=== PATIENT | male | born 1970 | race Caucasian/White ===

== ENCOUNTER 2016-04-30 12:05 | Outpatient (CLI) ==
[2014-03-27 10:23] VITALS: BMI 24.9
--- NOTE | 2016-04-30 12:46 | DI ---
EXAM: Nasal bones three views HISTORY: Nasal congestion, no trauma, deviated septum COMPARISON: None TECHNIQUE: Three views nasal bones were performed FINDINGS: There is cortical irregularity of the right and left nasal bones. Mild leftward deviatio n nasal septum with a leftward projecting spur suggested No focal soft tissue abnormality. There the re are metallic side plates and screws in the right and left mandible. IMPRESSION: 1. Cortical irregularity of the bilateral nasal bones, suggestive of age indeterminate fractures. By given history, there is no trauma and this would be favored chronic. Clinical correlation recomm ended. 2. Mild leftward deviation nasal septum with a leftward projecting spur suggested
[2016-04-30 13:45] LABS: BASOPHILS # (AUTO) 0.1 K/uL (0-0.2); BASOPHILS % (AUTO) 0.7 % (0.0-3.0); EOSINOPHILS # (AUTO) 0.3 K/ul (0.0-0.7); EOSINOPHILS % (AUTO) 4.4 % (0.0-7.0); HEMOGLOBIN 14.6 g/dl (14.0-18.0); IMMATURE GRANULOCYTE % (AUTO) 0.3 % (0.0-5.0); LYMPHOCYTES # (AUTO) 2.6 K/uL (0.60-3.4); LYMPHOCYTES % (AUTO) 34.4 (10.0-50.0); MEAN CORPUSCULAR HEMOGLOBIN 30.4 pg (27.0-31.0); MEAN CORPUSCULAR HGB CONC 31.7 (31.8-35.4); MEAN CORPUSCULAR VOLUME 95.6 fl (80.0-94.0); MONOCYTES # (AUTO) 0.7 K/uL (0.4-2.0); MONOCYTES % (AUTO) 8.9 (0-10); NEUTROPHILS # (AUTO) 3.9 K/ul (2.0-6.9); NEUTROPHILS % (AUTO) 51.3; PLATELET COUNT 375 10^3/uL (140-440); RED BLOOD COUNT 4.81 10^6/ul (4.70-6.10); WHITE BLOOD COUNT 7.65 K/ul (4.2-10.2)
[2016-04-30 13:58] LABS: ALBUMIN 4.3 g/dL (3.4-5.0); ALBUMIN/GLOBULIN RATIO 1.23; ANION GAP 13.1; BILIRUBIN,TOTAL 0.7 mg/dL (0.00-1.20); BUN/CREATININE RATIO 16.48; CHOL/HDL RATIO 4.5 (4.5-6.4); CREATININE 0.91 mg/dL (0.60-1.10); POTASSIUM 4.1 mmol/L (3.5-5.1); TOTAL PROTEIN 7.8 g/dL (6.4-8.2)
== END 2016-04-30 12:06 | disposition home or self-care (01) ==
LOC: RAD 12:05 → LAB 12:06
PROVIDERS: ATTEND Nurse Practitioner Family
DX: R51 Headache (principal); J34.2 Deviated nasal septum; R09.81 Nasal congestion; J44.9 Chronic obstructive pulmonary disease, unspecified; Z72.0 Tobacco use
CPT/HCPCS: 36415; 80053; 80061; 84443; 85025

== ENCOUNTER 2016-06-22 14:00 | Outpatient (CLI) ==
[2014-03-27 10:23] VITALS: BMI 24.9
--- NOTE | 2016-06-22 14:40 | DI ---
EXAM: Radiographs, lumbar spine HISTORY: Lumbar facet arthropathy and disc degeneration. COMPARISON: None available. TECHNIQUE: Five views. FINDINGS: Mild left convex midlumbar curvature noted. There is approximately 0.4 cm retrolisthesis of L3 on L4 with moderate to severe loss of disc height at L3-4. Alignment is otherwise normal. No fracture seen. Endplate osteophyte formation and sclerosis noted at L3-4. Lower lumbar facet arth ropathy is present. Note is made of incomplete fusion of the posterior elements of L5. Sacral arcu ate lines are intact. Soft tissues are unremarkable. IMPRESSION: 1. Moderate to severe degenerative disc disease at L3-4. 2. Lower lumbar facet arthropathy.
== END 2016-06-22 14:01 | disposition home or self-care (01) ==
LOC: RAD 14:00
PROVIDERS: ATTEND Pain Medicine Interventional Pain Medicine
DX: M47.816 Spondylosis without myelopathy or radiculopathy, lumbar region (principal); M47.817 Spondylosis without myelopathy or radiculopathy, lumbosacral region; M51.36 Other intervertebral disc degeneration, lumbar region; M51.37 Other intervertebral disc degeneration, lumbosacral region

== ENCOUNTER 2016-07-10 16:27 | Emergency (ER) ==
[2016-07-10 16:38] VITALS: BP 145/107; TEMP 97.7; BMI 25.0
--- NOTE | 2016-07-10 18:19 | ED.PDOC ---
General ED Provider: Dr. YESI MARTIN Chief Complaint: Knee Pain/Injury Stated Complaint: left knee pain Time Seen by Physician: 16:30 Mode of Arrival: Walk-In Information Source: Patient Exam Limitations: No limitations [facility] Documentation Reviewed and Agree: Yes Musculoskeletal Complaint Exam - Knee Pain Complaint/Exam Mechanism of Injury: Reports: No known trauma Onset/Duration: chronic Symptoms Are: Still present Current Severity: None Character: Reports: Dull, Aching Alleviating: Reports: None Aggravating: Reports: None Associated Signs and Symptoms: Denies: Swelling, Redness, Bruising, Fever, Weakness, Numbness, Tingling Able to Bear Weight: Yes Related History: Reports: Similar episode Gout Risk Factors: Reports: >40 years old Barbie Test Positive: No Yahir Test Positive: No Differential Diagnoses: Closed Fracture, Sprain, Strain Review of Systems - Review Of Systems Constitutional: Reports: No symptoms Eyes: Reports: No symptoms Ears, Nose, Mouth, Throat: Reports: No symptoms Respiratory: Reports: No symptoms Cardiac: Reports: No symptoms GI: Reports: No symptoms : Reports: No symptoms Musculoskeletal: Reports: Joint pain (knee) Skin: Reports: No symptoms Neurological: Reports: No symptoms Endocrine: Reports: No symptoms Hematologic/Lymphatic: Reports: No symptoms All Other Systems: Reviewed and Negative Past Medical History - Past Medical History Previously Healthy: Yes Endocrine: Reports: None Cardiovascular: Reports: None Respiratory: Reports: None Hematological: Reports: None Gastrointestinal: Reports: None Genitourinary: Reports: None Neuro/Psych: Reports: None Musculoskeletal: Reports: None Cancer: Reports: None - Surgical History General Surgical History: Reports: None - Family History Family History: Reports: None - Social History Smoking Status: Current every day smoker, Heavy tobacco smoker Hx Substance Use: No Alcohol Screening: Occasionally Physical Exam - Physical Exam Appearance: Well-appearing, No pain distress, Well-nourished Eyes: LUKAS, EOMI, Conjunctiva clear ENT: Ears normal, Nose normal, Oropharynx normal Respiratory: Airway patent, Breath sounds clear, Breath sounds equal, Respirations nonlabored Cardiovascular: RRR, Pulses normal, No rub, No murmur GI/: Soft, Nontender, No masses, Bowel sounds normal, No Organomegaly Musculoskeletal: Normal strength, ROM intact, No edema, No calf tenderness Skin: Warm, Dry, Normal color Neurological: Sensation intact, Motor intact, Reflexes intact, Cranial nerves intact, Alert, Oriented Psychiatric: Affect appropriate, Mood appropriate Interpretation - Radiology Interpretation Radiology Interpretation By: Radiologist Radiology Results: No acute changes Critical Care Note - Critical Care Note Total Time (mins): 0 Course - Course Orders, Labs, Meds: Orders Category Date Time Status KNEE, LEFT 4 VIEWS Stat RADS 07/10/16 16:51 Taken Vital Signs: Temp Pulse Resp BP Pulse Ox 07/10/16 16:28 97.7 F 89 20 145/107 H 95 Departure - Departure Time of Disposition: 18:18 Disposition: HOME SELF-CARE Discharge Problem: Knee pain Instructions: Knee Pain (ED), Arthralgia (ED) Condition: Good Pt referred to PMD for follow-up: No Additional Instructions: Please call your Family Physician as soon as possible to schedule a follow-up appointment. must have an MRI SEE CLINIC FOR IT Allergies/Adverse Reactions: Allergies codeine Adverse Reaction (Verified 07/10/16 16:38) Home Medications: Ambulatory Orders Hydrocodone/Acetaminophen [[place] 10-325 Tablet] 1 each PO 3-4XD PRN 01/28/16
--- NOTE | 2016-07-11 06:44 | DI ---
EXAM: Left knee, four views. HISTORY: Pain. COMPARISON: None. FINDINGS: AP, notch, sunrise and lateral views of the left knee. There are no acute or healing frac tures. There are no lytic or blastic lesions. Soft tissues are normal. There is no joint effusion . Mild joint narrowing and osteophyte formation is seen in all three compartments. IMPRESSION: 1. No acute fractures. 2. Minimal tricompartmental osteoarthritis.
== END 2016-07-10 18:30 | disposition home or self-care (01) ==
LOC: ED 16:27
DX: M25.562 Pain in left knee (principal)
CPT/HCPCS: 99283

== ENCOUNTER 2017-04-02 10:32 | Outpatient (CLI) ==
[2017-04-02 10:44] LABS: BASOPHILS # (AUTO) 0.1 K/uL (0-0.2); BASOPHILS % (AUTO) 0.6 % (0.0-3.0); EOSINOPHILS # (AUTO) 0.4 K/ul (0.0-0.7); EOSINOPHILS % (AUTO) 4.7 % (0.0-7.0); HEMATOCRIT 43.7 % (42.0-52.0); HEMOGLOBIN 14.7 g/dl (14.0-18.0); IMMATURE GRANULOCYTE % (AUTO) 0.4 % (0.0-5.0); LYMPHOCYTES # (AUTO) 3.1 K/uL (0.60-3.4); LYMPHOCYTES % (AUTO) 37.6 (10.0-50.0); MEAN CORPUSCULAR HEMOGLOBIN 31.7 pg (27.0-31.0); MEAN CORPUSCULAR HGB CONC 33.6 (31.8-35.4); MEAN CORPUSCULAR VOLUME 94.2 fl (80.0-94.0); MONOCYTES # (AUTO) 0.7 K/uL (0.4-2.0); MONOCYTES % (AUTO) 8.7 (0-10); PLATELET COUNT 319 10^3/uL (140-440); RED BLOOD COUNT 4.64 10^6/ul (4.70-6.10)
[2017-04-02 11:17] LABS: ALBUMIN 3.6 g/dL (3.4-5.0); ALBUMIN/GLOBULIN RATIO 0.92; ANION GAP 13.5; BILIRUBIN,TOTAL 0.3 mg/dL (0.00-1.20); BUN/CREATININE RATIO 19.75; CALCIUM 9.4 mg/dL (8.2-10.2); CHOL/HDL RATIO 4.5 (4.5-6.4); CREATININE 0.81 mg/dL (0.60-1.10); POTASSIUM 4.5 mmol/L (3.5-5.1); TOTAL PROTEIN 7.5 g/dL (6.4-8.2)
--- NOTE | 2017-04-02 12:08 | CT ---
EXAM: CT PARANASAL SINUSES HISTORY: Deviated nasal septum TECHNIQUE: CT paranasal sinuses without contrast. Detailed axial sections. Coronal and sagittal re formations. FINDINGS: No comparison CT sinuses. Frontal sinuses: Clear Ethmoid sinuses: Scattered mild to moderate areas of opacity. Sphenoid sinuses: Minimal thickening in the anterior left cell. Right cell clear. Maxillary sinuses: Minimal diffuse circumferential mucosal thickening. Septated anterior cells. General: Moderate nasal septal deviation toward the left at its midportion. The turbinates are plum p other than the upper left entity. No sinus fluid or definite postop changes. IMPRESSION: 1. Diffuse mild chronic sinusitis. 2. Moderate nasal septal deviation. 3. Turbinate hypertrophy.
== END 2017-04-02 10:33 | disposition home or self-care (01) ==
LOC: RAD 10:32
PROVIDERS: ATTEND Nurse Practitioner Family
DX: J34.2 Deviated nasal septum (principal); J44.9 Chronic obstructive pulmonary disease, unspecified; Z72.0 Tobacco use; E75.6 Lipid storage disorder, unspecified; R73.09 Other abnormal glucose
CPT/HCPCS: 36415; 80053; 80061; 83036; 85025

== ENCOUNTER 2017-04-06 12:13 | Outpatient (CLI) ==
--- NOTE | 2017-04-06 13:32 | MRI ---
EXAM: MRI brain without and with IV contrast. DATE: 06 April 2017. HISTORY: Congenital cerebral cysts. TECHNIQUE: Sagittal T1W pre and postcontrast, axial T2W, axial FLAIR, axial T1W pre and postcontrast , axial DWI, coronal T1W postcontrast, and coronal T2W GRE sequences of the brain were obtained using 1.2 Roberta magnet. CONTRAST: Omniscan - 15 ml IV. COMPARISON: MRI brain 30 October 2014 and 07 October 2010. FINDINGS: The anterior horn of each lateral ventricle is slightly prominent. Some frontal and parie tiffany lobe sulci near the superior vertex of the brain are slightly enlarged. Remaining ventricles, ci sterns, and subarachnoid spaces are normal in size and configuration. No midline shift, mass effect or loculated extra-axial fluid collection is apparent. No acute infarct, hemorrhage or enhancing int ra-axial neoplasm is identified. No abnormal contrast enhancement is identified in the brain, mening es or dura. Minimal IR hyperintensity is observed in the white matter abutting each lateral ventricl e. A few 2 mm diameter, T2W bright, non-enhancing foci are demonstrated in the subcortical white mat ter bilaterally. The leach - white matter differentiation is normal. No migration or diverticulation abnormality is identified. The amygdala, hippocampus, and parahippocampal gyri are similar bilatera lly. The 7th/8th cranial nerve complexes, cerebellopontine angles, brainstem, and visible cervical s antonette cord are normal. There is no cerebellar tonsillar ectopia. The pituitary gland is borderline small, without distinct neoplasm. A 5.8 x 4.7 x 4.8 mm pineal gland cyst is noted. Corpus callosum is normal in size and configuration. Flow voids are present in the major intracranial arteries and i n the dural venous sinuses. Vertebrobasilar arterial system is tortuous. No aneurysm, AVM or dural venous sinus thrombosis is apparent. No orbit abnormality is identified. The mastoid air cells are unremarkable. There is mucosal thickening within moderate number of ethmoid air cells, left frontal sinus, and left maxillary sinus. No neck mass or lymphadenopathy is detected. No calvarial neoplasm or acute fracture is evident. IMPRESSIONS: 1. No acute infarct, hemorrhage, enhancing neoplasm or hydrocephalus. 2. No convincing evidence of colloid cyst. 3. Minor cerebral small vessel disease. 4. Minor cerebral involutional change. 5. Borderline small pituitary gland. 6. Small, benign pineal gland cyst. 7. Multifocal mild sinus disease.
== END 2017-04-06 12:14 | disposition home or self-care (01) ==
LOC: RAD 12:13
PROVIDERS: ATTEND Nurse Practitioner Family
DX: Q04.6 Congenital cerebral cysts (principal)

== ENCOUNTER 2017-04-16 09:40 | Outpatient (CLI) | END 2017-04-16 09:41 | disposition home or self-care (01) | LOC: LAB 09:40 | PROVIDERS: ATTEND Emergency Medicine | DX: R73.9 Hyperglycemia, unspecified (principal); R53.1 Weakness; Z12.5 Encounter for screening for malignant neoplasm of prostate | CPT/HCPCS: 36415; 83036; 84403 ==

== ENCOUNTER 2017-12-03 15:26 | Outpatient (CLI) ==
--- NOTE | 2017-12-03 16:12 | DI ---
EXAM: Three views of the lumbar spine. History: Lower back pain with left sided sciatica Findings: No acute fracture. 3 mm retrolisthesis of L3 on L4 which is most likely degenerative in n ature. Severe disc space narrowing at L3-L4 with endplate sclerosis, osteophyte formation and vacuum disc phenomenon. Mild to moderate degenerative disc disease at L1-L2. 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 Impression: 1. No acute osseous abnormality of the lumbar spine. 2. Severe degenerative disc disease at L3-L4.
--- NOTE | 2017-12-03 16:12 | DI ---
EXAM: Four views of the right knee. History: Right knee pain. Findings: No acute fracture or dislocation. Joint spaces are preserved. Impression: No acute osseous abnormality and no degenerative joint disease
--- NOTE | 2017-12-03 16:12 | DI ---
EXAM: Four views of the left knee. History: Left knee pain. Findings: No acute fracture or dislocation. There are small osteophytes involving the inferior rosales llofemoral joint. The lateral and medial compartments are intact. Impression: 1. No acute osseous abnormality. 2. Mild arthritis of the patellofemoral compartment. If symptoms persist, consider correlation with MRI.
== END 2017-12-03 15:27 | disposition home or self-care (01) ==
LOC: RAD 15:26
PROVIDERS: ATTEND Emergency Medicine
DX: M54.42 Lumbago with sciatica, left side (principal); M54.41 Lumbago with sciatica, right side; G89.29 Other chronic pain; M25.561 Pain in right knee; M25.562 Pain in left knee

== ENCOUNTER 2018-08-05 09:31 | Outpatient (CLI) ==
--- NOTE | 2018-08-05 10:57 | DI ---
EXAM: Chest two views HISTORY: Chronic obstructive pulmonary disease COMPARISON: 12/25/2011 TECHNIQUE: Two views of the chest were performed FINDINGS: The lungs are clear. There is no pleural effusion or pneumothorax. The heart is normal i n size. The mediastinal contour is normal. There are no acute abnormalities of the bones. IMPRESSION: No acute cardiopulmonary process.
== END 2018-08-05 09:32 | disposition home or self-care (01) ==
LOC: RAD 09:31
PROVIDERS: ATTEND Family Medicine
DX: J44.1 Chronic obstructive pulmonary disease with (acute) exacerbation (principal)

== ENCOUNTER 2018-09-01 12:37 | Outpatient (CLI) ==
[2018-09-01] MEDS ORDERED: ALBUTEROL 0.083% NEB NEB STA (12:42)
== END 2018-09-01 12:38 | disposition home or self-care (01) ==
LOC: CAR 12:37
PROVIDERS: ATTEND Family Medicine
DX: J44.9 Chronic obstructive pulmonary disease, unspecified (principal); F17.210 Nicotine dependence, cigarettes, uncomplicated